=== PATIENT | female | born 1975 | race Hispanic/Latino ===

== ENCOUNTER 2019-01-03 09:49 | Outpatient (CLI) | payer BC ==
--- NOTE | 2019-01-03 14:08 | ULT ---
LIMITED LEFT BREAST ULTRASOUND: Date: 01-03-19 History: Abnormal screening mammogram. FINDINGS: Correlation is made with 2D screening mammographic images dated 12-19-18 from outside institution. Chandan carreon sonographic interrogation of the retroareolar and inferior aspect of the left breast was perform ed in the region of described abnormality on the screening mammogram report. Large simple appearing c ysts are present, measuring approximately 4.1 cm maximally and 5.1 cm maximally. The 3D imaging is not currently available for review. There is a focal asymmetry at the outer aspect of the left breast on this screening mammogram. The screening mammogram was not available for correla tion at the time of sonography and this portion of the breast was not sonographically interrogated. IMPRESSION: 1. Simple appearing cysts are seen within the left breast in the regions of described abnormality on the screening mammography report of 12-19-18. BIRADS category 2 - benign findings. 2. Focal asymmetry at the outer aspect of the left breast on the screening mammogram my reflect super imposed tissue. Correlation with the 3D data set which is not currently available, as well as prior m ammograms is recommended. POS: OFF
== END 2019-01-03 09:50 | disposition home or self-care (01) ==
LOC: BICULT 09:49
PROVIDERS: ATTEND Obstetrics & Gynecology
DX: N63.20 Unspecified lump in the left breast, unspecified quadrant (principal); N60.02 Solitary cyst of left breast; N64.89 Other specified disorders of breast